=== PATIENT | female | born 1945 | race Caucasian/White ===

== ENCOUNTER 2017-09-14 22:05 | Emergency (ER) | payer MEDICARE, OTHER ==
[2017-09-14] MEDS ORDERED: Albuterol/Ipratropium 3.0-0.5 MG/3 ML Neb Soln NEB ONE (22:23)
--- NOTE | 2017-09-14 22:28 | EDM.PDOC ---
ED HPI GENERAL MEDICAL PROBLEM - General Chief Complaint: Respiratory Problem Stated Complaint: SOB/coughing/wheezing Time Seen by Provider: 09/14/17 22:27 Source of Information: Reports: Patient History Limitations: Reports: No Limitations ( ) - History of Present Illness INITIAL COMMENTS - FREE TEXT/NARRATIVE: 72-year-old female brought to the hospital by her . Patient just got back from [place] where she has been for the last week. She believes she started to get sick before she left [place]. She traveled with several other ladies to an art show in [employer] and other events in [facility]. She states she developed illness there that required assessment by PA bookkeeping clerks supervisor at a walk-in clinic. She was told she had a viral upper spider tract infection with wheezing and was placed on a Medrol Dosepak and Z-Thomas and an albuterol inhaler. Her chief complaint is severe paroxysmal cough to the point of losing control of her bladder almost emesis and almost blacking out. It is particularly worse if she lies down. She is bringing up a small quantity of clear mucus. She has no known history of COPD or asthma. She states she did not have an influenza screen RSV screen while in [place]. Onset: Sudden Onset Date: 09/09/17 Duration: Day(s): (Illness started suddenly last Thursday which was in [place]. ) Location: Reports: Chest (Severe paroxysmal cough of clear phlegm. No fever chills decreased appetite. Headache from coughing so much.) Quality: Reports: Other (Severe paroxysmal cough) Severity: Severe Improves with: Reports: None Worsens with: Reports: Other Context: Denies: Activity (Lying down makes things much worse), Exercise, Lifting, Sick Contact, Trauma, Other Associated Symptoms: Reports: Cough (Clear sputum), cough w sputum, Loss of Appetite, Malaise, Shortness of Breath, Weakness (From coughing so much and not being able to get sleep). 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 - Related Data Allergies Allergy/AdvReac Type Severity Reaction Status Date / Time No Known Allergies Allergy Verified 01/28/14 21:32 Home Meds: Home Meds Hydrochlorothiazide 12.5 mg PO DAILY 01/28/14 [History] Simvastatin [Zocor] 20 mg PO BEDTIME 01/28/14 [History] Albuterol Sulfate [Proair Hfa] 2 puff INH Q4H PRN 09/14/17 [History] Aspirin 81 mg PO DAILY 09/14/17 [History] Atenolol 50 mg PO DAILY 09/14/17 [History] Azithromycin 500 mg PO 09/14/17 [History] Benzonatate [Tessalon Perle] 100 mg PO Q8H PRN 09/14/17 [History] methylPREDNISolone [Medrol] 1 tab PO ASDIRECTED 09/14/17 [History] Albuterol/Ipratropium [DuoNeb 3.0-0.5 MG/3 ML] 3 ml NEB QID #40 neb 09/15/17 [Rx ] Budesonide [Pulmicort] 0.25 mg IH ASDIRECTED #30 neb 09/15/17 [Rx] Chlorpheniramine/HYDROcodone [Tussionex Pennkinetic] 5 ml PO Q12H PRN #60 ml [Rx] Past Medical History Cardiovascular History: Reports: High Cholesterol, Hypertension Musculoskeletal History: Reports: Osteoarthritis Social & Family History - Family History Family Medical History: Noncontributory - Recreational Drug Use Recreational Drug Use: No - Living Situation & Occupation Living situation: Reports: Occupation: Retired ED ROS GENERAL - Review of Systems Review Of Systems: See Below Constitutional: Reports: Malaise, Weakness, Fatigue, Decreased Appetite (Over the last 6 days.), Weight Loss. Denies: Fever, Chills HEENT: Reports: Glasses, Rhinitis. Denies: Ear Pain Respiratory: Reports: Shortness of Breath, Wheezing, Cough (Clear sputum severe intermittent paroxysmal cough sometimes can't hardly get her air almost develops laryngospasm because of the severity of the cough.), Sputum. Denies: Pleuritic Chest Pain Cardiovascular: Reports: Chest Pain, Blood Pressure Problem (Only from coughing. Hypertension controlled with medication), Dyspnea on Exertion ( has trace edema in her lower extremities at all times), Edema (Coughing so hard makes her lightheaded at times), Lightheadedness. Denies: Claudication ( pressure is elevated at the time presentation 190 systolic.), Orthopnea, Palpitations Endocrine: Reports: Fatigue GI/Abdominal: Reports: Decreased Appetite : Reports: Incontinence (Urge and stress components made worse by severe cough ) Musculoskeletal: Reports: Joint Pain (Knees hips low back and neck at times.) Skin: Reports: No Symptoms Neurological: Reports: No Symptoms Psychiatric: Reports: No Symptoms ED EXAM, GENERAL - Physical Exam Exam: See Below Exam Limited By: No Limitations General Appearance: Alert, WD/WN, Other (Severe paroxysmal intermittent cough to the point of near emesis. She is afebrile on exam.) Eye Exam: Bilateral Eye: Normal Fundi, Normal Inspection Ears: Normal TMs Nose: Normal Inspection, Normal Mucosa, No Blood Throat/Mouth: Normal Inspection, Normal Lips, Normal Oropharynx Head: Atraumatic, Normocephalic Neck: Normal Inspection, Supple, Non-Tender, Full Range of Motion. No: Carotid Bruit, Lymphadenopathy (L), Lymphadenopathy (R) Respiratory/Chest: Chest Non-Tender, Respiratory Distress (Moderate tachypnea 24 -26/m with O2 sats of 94-95% on room air), Decreased Breath Sounds (Decreased air into the lower 50% of lung wells with bilateral expiratory wheezes.), Rhonchi (Mild rhonchi heard both upper anterior lobes.), Wheezing (Throughout all lung wells.). No: Stridor, Pleural Rub, Accessory Muscle Use, Retractions , Splinting Cardiovascular: Normal Peripheral Pulses, Regular Rate, Rhythm, No Gallop, No Murmur, No Rub, Other (Heart sounds were difficult to hear due to audible wheezing throughout all lung wells.) Peripheral Pulses: 1+: Posterior Tibial (L), Posterior Tibial (R), Dorsalis Pedis (L), Dorsalis Pedis (R) GI/Abdominal: Normal Bowel Sounds, Soft, Non-Tender, No Organomegaly, Distended. No: Guarding, Rigid, Rebound (There is mild tubular to percussion upper abdomen from aerophagia. Soft patient without organomegaly or masses noted.), Tender Back Exam: Normal Inspection, Full Range of Motion. No: CVA Tenderness (L), CVA Tenderness (R) Extremities: Normal Inspection, Normal Range of Motion, Non-Tender, Pedal Edema (Trace pedal edema 1+ at the lower tib-fib and and feet.), Other Neurological: Alert (Mild osteophytic changes both knees and hips.), Oriented, CN II-XII Intact, Normal Cognition, Normal Gait Psychiatric: Normal Affect, Normal Mood Skin Exam: Warm, Dry, Intact, Normal Color, No Rash EKG INTERPRETATION EKG Date: 09/14/17 Time: 22:40 Rhythm: NSR Rate (Beats/Min): 85 [place]: Normal P-Wave: Present (Borderline first-degree AV block) QRS: Other (There is early R-wave transition adjusting possible right ventricular hypertrophy/septal hypertrophy pattern.) ST-T: Other (Wondering baseline but no definitive ST segment changes.) QT: Prolonged (QT mildly prolonged.) EKG Interpretation Comments: Abnormal ECG Course - Vital Signs Last Recorded V/S: Last Vital Signs Temp 36.0 C 09/14/17 22:08 Pulse 79 09/14/17 22:08 Resp 24 H 09/14/17 22:08 BP 190/89 H 09/14/17 22:08 Pulse Ox 98 09/14/17 23:04 - Orders/Labs/Meds Orders: Active Orders 24 hr Category Date Time Status EKG Documentation Completion [RC] STAT Care 09/14/17 22:25 Active RT Aerosol Therapy [RC] ASDIRECTED Care 09/14/17 22:23 Active RT Aerosol Therapy [RC] ASDIRECTED Care 09/14/17 22:57 Active RT Aerosol Therapy [RC] ASDIRECTED Care 09/15/17 00:26 Active Chest 1V Frontal [CR] Stat Exams 09/14/17 22:25 Taken Labs: Laboratory Tests 09/14/17 09/14/17 09/14/17 Range/Units 22:49 22:49 22:49 WBC 10.07 H (3.98-10.04) K/mm3 RBC 5.17 (3.98-5.22) M/mm3 Hgb 14.2 (11.2-15.7) gm/L Hct 42.8 (34.1-44.9) % MCV 82.8 (79.4-94.8) fl MCH 27.5 (25.6-32.2) pg MCHC 33.2 (32.2-35.5) g/dl RDW Std Deviation 42.8 (36.4-46.3) fL Plt Count 217 (182-369) K/mm3 MPV 10.2 (9.4-12.3) fl Neutrophils % (Manual) 74 H (40-60) % Band Neutrophils % 0 (0-10) % Lymphocytes % (Manual) 19 L (20-40) % Atypical Lymphs % 4 % Monocytes % (Manual) 3 (2-10) % Eosinophils % (Manual) 0 L (0.7-5.8) % Basophils % (Manual) 0 L (0.1-1.2) Platelet Estimate Adequate Plt Morphology Comment Normal RBC Morph Comment Normal Sodium 139 (136-145) mEq/L Potassium 4.0 (3.5-5.1) mEq/L Chloride 103 (98-107) mEq/L Carbon Dioxide 23 (21-32) mEq/L Anion Gap 17.0 H (5-15) BUN 22 H (7-18) mg/dL Creatinine 1.0 (0.55-1.02) mg/dL Est Cr Clr Drug Dosing 40.83 mL/min Estimated GFR (MDRD) 54 (>60) mL/min BUN/Creatinine Ratio 22.0 H (14-18) Glucose 198 H (83-115) mg/dL Calcium 9.3 (8.5-10.1) mg/dL Magnesium 2.0 (1.8-2.4) mg/dl Total Bilirubin 0.4 (0.2-1.0) mg/dL AST 25 (15-37) U/L ALT 29 (14-59) U/L Alkaline Phosphatase 114 (46-116) U/L CK-MB (CK-2) 2.3 (0-3.6) ng/ml Troponin I < 0.017 (0.00-0.056) ng/mL C-Reactive Protein 0.7 (<1.0) mg/dL NT-Pro-B Natriuret Pep 149 H (0-125) pg/mL Total Protein 7.6 (6.4-8.2) g/dl Albumin 3.7 (3.4-5.0) g/dl Globulin 3.9 gm/dL Albumin/Globulin Ratio 1.0 (1-2) Meds: Medications Discontinued Medications Generic Name Dose Route Start Last Admin Trade Name Freq PRN Reason Stop Dose Admin Albuterol/Ipratropium 3 ml 09/14/17 22:23 09/14/17 22:29 Duoneb 3.0-0.5 Mg/3 Ml NEB 09/14/17 22:24 3 ml ONETIME ONE Administration Albuterol/Ipratropium 3 ml 09/15/17 00:26 09/15/17 00:30 Duoneb 3.0-0.5 Mg/3 Ml NEB 09/15/17 00:27 Not Given ONETIME ONE Albuterol/Ipratropium 6 ml 09/15/17 00:29 09/15/17 00:30 Duoneb 3.0-0.5 Mg/3 Ml NEB 09/15/17 00:30 6 ml ONETIME ONE Administration Albuterol/Ipratropium Confirm 09/15/17 00:32 09/15/17 00:30 Duoneb 3.0-0.5 Mg/3 Ml Administered 09/15/17 00:33 Not Given Dose 6 ml .ROUTE .STK-MED ONE Budesonide 0.5 mg 09/14/17 22:57 09/14/17 23:02 Pulmicort NEB 09/14/17 22:58 0.5 mg ONETIME ONE Administration Promethazine HCl/Codeine 15 ml 09/14/17 22:58 09/14/17 23:12 Phenergan With Codeine PO 09/14/17 22:59 15 ml ONETIME ONE Administration - Radiology Interpretation Free Text/Narrative:: 72-year-old female attends the ED after developing an acute upper respiratory tract infection while in [place] last week Thursday. She was seen in the walk- in clinic in [place] and told she had a viral upper SPECT her tract infection. No screens for influenza RSV or chest x-ray were obtained. She was given a Medrol Dosepak as well as a new albuterol metered dose inhaler and Z-Thomas. She has been on medication now for 3 days and is getting worse. She presents the ED primarily due to severe paroxysmal cough to the point of near blacking out laryngospasm and loss of control of her bladder. She states the sputum is clear in color. She is minimal rhinitis. She just can't stop coughing. Has no history of documented COPD or heart related illness. She has no associated fever although she has a mild headache and her appetite is certainly much less than normal. Currently she doesn't believe the albuterol metered-dose inhalers helpful because it makes her cough and she's not getting any medication into her lungs. Examination reveals diffuse wheezing from all lung wells with decreased air entry to the lower 50% of her lung wells. O2 sats are 94-95% on room air. Does have a terrible paroxysmal productive sounding cough. Landing influenza and RSV screens to be done. We'll give her a DuoNeb treatment. Chest x -ray will be done with routine lab work including a BNP. - Re-Assessments/Exams Free Text/Narrative Re-Assessment/Exam: 09/14/17 23:14 chest x-ray done portably shows that she is rotated slightly to the right making the right hilar area little more prominent than normal. There appears to be dominant vasculature in the right lower lobe but no definitive area of consolidated pneumonia. Her perhaps mild scar tissue in the right lower base. ECG revealed sinus rhythm at 85/m with no signs of ischemia. 09/14/17 23Z:35: Labs reveal a normal white count at 10.07 in spite of being on Medrol Dosepak. Differential is 74% neutrophils no bands. Hemoglobin is 14.2 with hematocrit of 42.8. Reticulocyte count is 217,000. Sodium is 139 with a potassium of 4.0. Chloride is 103 with a bicarbonate 23. And a gap is mildly elevated at 17.0. BUN is 22. Creatinine is 1.0. GFR is 54. Glucose is mildly elevated at 198 likely aggravated by current high-dose steroid use. Calcium is 9.3 with a magnesium of 2.0. Bilirubin is 0.4. AST is 25 with an ALT of 29. Alkaline phosphatase normal at 114. CK-MB fraction is 2.3 troponin I is less than 0.017 C-reactive protein is 0.7. BNP is normal at 149. Patient did fine the DuoNeb somewhat helpful. Her severe paroxysmal cough however and forceful voice clearing is continuing to the irritant receptors remaining very active. I will try Pulmicort via nebulizer to see if this eases her cough. 09/14/17 23:55: Patient felt the Pulmicort did soothe her throat to mild degree and she has stopped coughing quite as badly. I've also given her a dose of Phenergan with codeine 15 mils by mouth to help with the severe paroxysmal cough. Influenza screen and RSV screen came back negative as well. She does indeed appear to have a viral upper respiratory tract infection aggravating underlying COPD with creation of severe wheezing. She will stay on her Medrol Dosepak. She will stay on the Z-Thomas since he's already completed 3 days of it. His illness over his viral. She's not getting any relief from her metered-dose inhaler. I will therefore have RT teach her how to use the home nebulizer machine. She will be sent home with DuoNeb nebulizers to use 4 times a day until better until no cough to 2 days. Pulmicort 0.5 mg ampules one nebulizer every 8 hours for the next 7 or 8 days or until she has not coughed for 2 days. Tussionex cough syrup 5 mils every 12 hours. For cough relief primarily at bedtime. She'll follow-up with her personal care physician if not markedly improved in the next 48-72 hours. Departure - Departure Time of Disposition: 00:18 Disposition: Home, Self-Care 01 Condition: Fair Clinical Impression: Viral bronchitis - Discharge Information Prescriptions: Albuterol/Ipratropium [DuoNeb 3.0-0.5 MG/3 ML] 3 ml NEB QID #40 neb Budesonide [Pulmicort] 0.25 mg IH ASDIRECTED #30 neb Chlorpheniramine/HYDROcodone [Tussionex Pennkinetic] 5 ml PO Q12H PRN #60 ml PRN Reason: cough relief. Instructions: Acute Bronchitis, Adult, [place]-[facility]-[place]ur[facility] Referrals: PCP,None [Primary Care Provider] - Forms: ED Department Discharge Additional Instructions: Evaluation in the emergency room tonight in regards to severe paroxysmal cough that is developed from a viral upper respiratory tract infection. No high fevers associated with it to suggest influenza. Influenza and RSV screens done through the ED tonight were both negative. X-ray done does not show any signs of pneumonia. It shows scar tissue or early pulmonary fibrosis in the right lower lobe of your lung. You're treated with a DuoNeb nebulizer treatment to alleviate some of the severe cough. Also Pulmicort steroid Nebules to relieve some of the coughing coming from the upper respiratory tract. The more you cough the more the vocal cords slammed together and the more feeling of need to cough occurs. So the norton to this illness is trying to learn to not play or throat forcefully or recurrent throat clearing. The norton of treatment is to try and bring the cough under control. At this time since her in the middle of your Medrol Dosepak continue. Continue the Zithromax as well although the illness is most likely viral. Will cover mycoplasma pneumonia which is an organism between a bacteria and virus. Treatment at home his home nebulizer treatment using DuoNeb 4 times daily to help with cough and make sure that secretions accumulated in the lung tubes are coughed up. It should help with wheezing and chest pressure discomfort. Pulmicort nebulizer is to be used 3 times daily until you are not coughing for 2 days and then it could be discontinued. Clearly the DuoNeb could be used until no further coughing for 2 days and then discontinued as well. Cough syrup Tussionex 5 mils every 12 hours as needed for cough relief. This is primarily to be used at bedtime about an hour before your plan to go to bed so that it alleviates coughing during the night. However if you feel cough is out of control or severe in the morning take a half a dose of the Tussionex for cough relief. Of note he takes a good hour to work. Follow-up with personal care physician ideally on Thursday this week to make sure that you are getting better. If not sometime early next week would be suitable as well. - My Orders Last 24 Hours: My Active Orders 09/14/17 22:23 RT Aerosol Therapy [RC] ASDIRECTED 09/14/17 22:25 EKG Documentation Completion [RC] STAT Chest 1V Frontal [CR] Stat 09/14/17 22:57 RT Aerosol Therapy [RC] ASDIRECTED 09/15/17 00:26 RT Aerosol Therapy [RC] ASDIRECTED - Assessment/Plan Last 24 Hours: My Active Orders 09/14/17 22:23 RT Aerosol Therapy [RC] ASDIRECTED 09/14/17 22:25 EKG Documentation Completion [RC] STAT Chest 1V Frontal [CR] Stat 09/14/17 22:57 RT Aerosol Therapy [RC] ASDIRECTED 09/15/17 00:26 RT Aerosol Therapy [RC] ASDIRECTED
[2017-09-14] MEDS ORDERED: Budesonide 0.5 MG/2 ML Neb Susp NEB ONE (22:57)
[2017-09-14] MEDS ORDERED: Codeine/Promethazine 10-6.25 MG/5 ML Syrup 5 ML UD Cup PO ONE (22:58)
[2017-09-15] MEDS ORDERED: Albuterol/Ipratropium 3.0-0.5 MG/3 ML Neb Soln NEB ONE ×2 (00:26→00:29)
[2017-09-15] MEDS ORDERED: Albuterol/Ipratropium 3.0-0.5 MG/3 ML Neb Soln ONE (00:32)
--- NOTE | 2017-09-15 11:14 | CR ---
Chest: Frontal view of the chest was obtained. Comparison: No prior chest x-ray. Heart size and mediastinum are normal. Lungs are clear. Bony structures are grossly intact. Impression: 1. Nothing acute is seen on frontal chest x-ray. Diagnostic code #1
== END 2017-09-15 00:30 | disposition home or self-care (01) ==
LOC: JD.ED 22:05
DX: J20.8 Acute bronchitis due to other specified organisms (principal); I10 Essential (primary) hypertension; E78.00 Pure hypercholesterolemia, unspecified; Z79.82 Long term (current) use of aspirin; Z79.2 Long term (current) use of antibiotics; Z79.899 Other long term (current) drug therapy
CPT/HCPCS: 36415; 71045; 80053; 82553; 83735; 83880; 84484; 85025; 86140; 87804; 87807; 93005; 94640; 99285; A9270; 99284

== ENCOUNTER 2025-05-10 00:47 | Emergency (ER) | payer MEDICARE, OTHER ==
[2025-05-10] MEDS ORDERED: Sodium Chloride 0.9% 10 ML Syringe FLUSH PRN (01:12)
[2025-05-10 01:41] LABS: BASOPHILS ABSOLUTE AUTO 0.1 K/mm3 (0.0-0.2); BASOPHILS PERCENT AUTO 0.6 % (0.0-1.0); EOSINOPHILS ABSOLUTE AUTO 0.2 K/mm3 (0.0-0.4); EOSINOPHILS PERCENT AUTO 2.3 % (0.0-6.0); IMMATURE GRAN ABSOLUTE AUTO 0.02 K/mm3 (0.00-0.05); IMMATURE GRAN PERCENT AUTO 0.3 % (0.0-0.4); LYMPHOCYTES ABSOLUTE AUTO 2.1 K/mm3 (1.0-4.8); LYMPHOCYTES PERCENT AUTO 27.6 % (24.0-44.0); MEAN PLATELET VOLUME 10.0 fl (9.4-12.3); MONOCYTES ABSOLUTE AUTO 0.7 K/mm3 (0.0-0.8); MONOCYTES PERCENT AUTO 9.1 % (0.0-8.0); NEUTROPHILS ABSOLUTE AUTO 4.7 K/mm3 (1.8-7.7); NEUTROPHILS PERCENT AUTO 60.1 % (41.0-71.0); NRBC ABSOLUTE 0.00 (0.00-0.02); NRBC PERCENT 0.0 % (0.0-0.2); PLATELET COUNT,PLT 236 K/mm3 (150-400); RED BLOOD CELL COUNT 4.35 M/mm3 (4.10-5.30); WHITE BLOOD CELL COUNT,WBC 7.73 K/mm3 (3.9-11.3)
[2025-05-10 01:42] LABS: APPEARANCE,URINE CLEAR (Clear); GLUCOSE,URINE 2+ (Negative); OCCULT BLOOD,URINE NEGATIVE (Negative)
[2025-05-10 01:54] LABS: EPITHELIAL CELLS,URINE 0-5 /hpf (0-5)
[2025-05-10 02:02] LABS: A/G RATIO 1.3 (1-2); ALANINE AMINOTRANSFERASE,ALT 24.0 U/L (14-59); ASPARTATE AMNIOTRANSFERASE,AST 22.0 U/L (15-37); BILIRUBIN TOTAL 0.4 mg/dL (0.2-1.0); BLOOD UREA NITROGEN,BUN 34.0 mg/dL (7-18); CARBON DIOXIDE,CO2 25.0 mEq/L (21-32); CHLORIDE,CL 106.0 mEq/L (98-107); CREATININE 1.3 mg/dL (0.55-1.02); EST CRCL DRUG DOSING (CG) 23.96 mL/min; ESTIMATED GFR 41.0 mL/min (>60); GLUCOSE RANDOM 131.0 mg/dL (70-99); POTASSIUM,K 3.9 mEq/L (3.5-5.1); PROTEIN TOTAL,TP 6.8 g/dl (6.4-8.2); SODIUM,NA 142.0 mEq/L (136-145)
[2025-05-10] MEDS: Iopamidol 612 MG/ML 100 ML Bottle IVPUSH ONE (02:20)
[2025-05-10] MEDS: Ondansetron 4 MG/2 ML SDV IVPUSH ONE (02:24)
== END 2025-05-10 04:24 | disposition home or self-care (01) ==
LOC: JD.ED 00:47
DX: N39.0 Urinary tract infection, site not specified (principal); I10 Essential (primary) hypertension; E78.00 Pure hypercholesterolemia, unspecified; E11.9 Type 2 diabetes mellitus without complications; M19.90 Unspecified osteoarthritis, unspecified site; Z88.8 Allergy status to other drugs, medicaments and biological substances; Z79.899 Other long term (current) drug therapy; Z79.82 Long term (current) use of aspirin; Z86.16 Personal history of COVID-19; Z79.2 Long term (current) use of antibiotics
CPT/HCPCS: 36415; 74177; 80053; 81001; 83605; 83690; 85025; 96361; 96374; 96375; 96376; 99284; J0696; J2270; J2405; J7030; Q9967